=== PATIENT | male | born 2000 | race Two or more races ===

== ENCOUNTER 2024-03-25 07:55 | Emergency (ER) | payer OTHER ==
[~2024-03-25] VITALS: Ht 182.9 cm; Wt 145.4 kg
[2024-03-25 08:08] VITALS: TEMP 98.3
[2024-03-25 08:26] LABS: COVID AG,FIA SOURCE NASAL SWAB
[2024-03-25 08:53] LABS: INFLUENZA TYPE A NEGATIVE FOR TYPE A (NEGATIVE); INFLUENZA TYPE B NEGATIVE FOR TYPE B (NEGATIVE); SARS-COV2 (COVID) ANTIGEN,FIA Negative (Negative)
[2024-03-25 08:57] LABS: APPEARANCE,URINE CLEAR (CLEAR); BILIRUBIN,URINE NEGATIVE (NEGATIVE); COLOR,URINE LIGHT YELLOW (YELLOW); GLUCOSE, URINE (UA) NEGATIVE (NEGATIVE); KETONES,URINE NEGATIVE (NEGATIVE); LEUKOCYTE ESTERASE ,URINE NEGATIVE (NEGATIVE); NITRATE,URINE NEGATIVE (NEGATIVE); OCCULT BLOOD,URINE NEGATIVE (NEGATIVE); PH,URINE 6.5 (5.0-8.0); PROTEIN,URINE NEGATIVE (NEGATIVE); SPECIFIC GRAVITIY, URINE 1.027 (1.003-1.030)
[2024-03-25 09:01] LABS: BACTERIA,URINE None Seen /HPF (None Seen); RBC,URINE None Seen /HPF (0-2); WBC,URINE None Seen /HPF (0-5)
[2024-03-25] MEDS: KETOROLAC TROMETHAMINE 60 MG/2 ML VIAL IM ONE (09:20)
[2024-03-25] MEDS: METHOCARBAMOL 500 MG TABLET PO ONE (09:20)
[2024-03-25] MEDS ORDERED: METH-659 PO (09:34)
[2024-03-25] MEDS ORDERED: IBUP-1492 PO (09:34)
[2024-03-25 09:45] VITALS: BP 150/79; PULSE 90; RESP 16
== END 2024-03-25 10:04 | disposition home or self-care (01) ==
LOC: EMS 07:55
DX: S29.012A Strain of muscle and tendon of back wall of thorax, initial encounter (principal); Z20.822 Contact with and (suspected) exposure to COVID-19; X58.XXXA Exposure to other specified factors, initial encounter; Y93.89 Activity, other specified; Y92.89 Other specified places as the place of occurrence of the external cause; Y99.8 Other external cause status
CPT/HCPCS: 99283; 87426; 81001; 87804; 96372; J1885